=== PATIENT | female | born 1970 | race American Indian/Alaskan Native ===

== ENCOUNTER 2019-08-03 07:56 | Inpatient (IN) | payer MEDICAID ==
[2019-08-02 12:08] LABS: Hemoglobin 12.6 gm/dl (10.1-14.3); Mean Corpuscular HGB Conc 33 % (30-34); Mean Corpuscular Volume 95 fl (79-97); Platelet Count 342 K/mm3 (140-440)
[2019-08-02 12:56] LABS: Large Platelets Rare; Platelet Estimate Consistent w Auto; RBC Morphology Normal; Total Cells Counted 100
--- NOTE | 2019-08-03 07:55 | Anesthesia Consultation ---
Anesthesia Consult and Med Hx Date of service: 08/03/19 - Airway Anesthetic Teeth Evaluation: Good ROM Head & Neck: Adequate Mental/Hyoid Distance: Adequate Mallampati Class: Class II Intubation Access Assessment: Probably Good - Pulmonary Exam CTA: Yes - Cardiac Exam Cardiac Exam: RRR - Pre-Operative Health Status ASA Pre-Surgery Classification: ASA1 Proposed Anesthetic Plan: General - Pre-Anesthesia Comment Pre-Anesthesia Comments: Patient does not want TAP block. - Central Nervous System Hx Psychiatric Problems: No - Other Systems Hx Cancer: No - Additional Comments Anesthesia Medical History Comments: Healthy
--- NOTE | 2019-08-03 07:55 | Anesthesia Day of Surgery ---
Anesthesia Day of Surgery - Day of Surgery Patient Examined: Yes Patient H&P Reviewed: Yes Patient is NPO: Yes
[2019-08-03] MEDS ORDERED: LACTATED RINGERS 1,000 ML IV SCH (08:00)
[2019-08-03] MEDS ORDERED: MIDAZOLAM 2 MG/2 ML INJ IV NR (08:00)
--- NOTE | 2019-08-03 08:24 | History and Physical Report ---
History of Present Illness Date of examination: 08/03/19 Date of admission: 08/03/19 07:56 Chief complaint: Symptomatic uterine fibroids History of present illness: Pt is a 49yo BF LMP 06/27/19 presents for surgical evaluation and treatment of uterine fibroids. She complains of pelvic pain, and pelvic u/s showed an enlarged uterus 14 x 6.7 x 8.7cm with multiple fibroids. She desires a Total Abdominal Hysterectomy with ovarian conservation. Past History Past Medical History: no pertinent history Past Surgical History: no surgical history COURT CLERK History: fibroids Family/Genetic History: none Social history: no significant social history, single Medications and Allergies Allergies Allergy/AdvReac Type Severity Reaction Status Date / Time No Known Allergies Allergy Verified 07/28/19 15:00 Home Medications Medication Instructions Recorded Confirmed Last Taken Type No Known Home Medications [No 07/28/19 07/28/19 Unknown History Reported Home Medications] Active Meds: Active Medications Acetaminophen/Hydrocodone Bitart ([place] 5/325) 2 each PO ONCE PRN PRN Reason: Pain, Moderate (4-6) Hydromorphone HCl (Dilaudid) 0.5 mg IV Q10MIN PRN PRN Reason: Pain , Severe (7-10) Lactated Ringer's (Lactated Ringers) 1,000 mls @ 100 mls/hr IV DIRECT ZEE Midazolam HCl (Versed) 2 mg IV PREOP NR Stop: 08/03/19 23:59 Ondansetron HCl (Zofran) 4 mg IV ONCE PRN PRN Reason: Nausea And Vomiting Review of Systems All systems: negative - Vital Signs Vital signs: Vital Signs Temp Pulse Resp BP Pulse Ox 97.9 F 92 H 20 138/94 97 08/02/19 10:50 08/02/19 10:50 08/02/19 10:50 08/02/19 10:50 08/02/19 10:50 Temp Pulse Resp BP Pulse Ox 97.9 F 92 H 20 138/94 97 08/02/19 10:50 08/02/19 10:50 08/02/19 10:50 08/02/19 10:50 08/02/19 10:50 - Physical Exam Breasts: Positive: deferred Cardiovascular: Regular rate Lungs: Positive: Clear to auscultation Abdomen: Positive: normal appearance Genitourinary (Female): Positive: normal external genitalia Uterus: Positive: enlarged Extremities: Positive: normal Results Result Diagrams: 08/04/19 06:37 08/04/19 06:37 Abnormal lab results 08/02/19 Range/Units 11:00 WBC 4.4 L (4.5-11.0) K/mm3 Monocytes % (Manual) 18.0 H (0.0-7.3) % All other labs normal. Ultrasound: report reviewed Assessment and Plan - Patient Problems (1) Fibroid uterus Onset Date: 08/03/19 Current Visit: Yes Status: Resolved Qualifiers: Uterine leiomyoma location: intramural and subserous Qualified Code(s): D25.1 - Intramural leiomyoma of uterus; D25.2 - Subserosal leiomyoma of uterus Plan to address problem: A: Symptomatic uterine fibroids P: Admit for a Total Abdominal Hysterectomy with Bilateral Salpingectomy
[2019-08-03] MEDS ORDERED: HYDROcodone/ACETAMINOPHEN 5-325 MG TAB PO PRN (08:30)
[2019-08-03] MEDS ORDERED: ONDANSETRON 4 MG/2 ML INJ IV PRN (08:30)
[2019-08-03] MEDS ORDERED: ceFAZolin/Water 2 GM/20 ML 2 GM/20 ML SYRINGE IV NR (08:30)
[2019-08-03] MEDS ORDERED: ONDANSETRON 4 MG/2 ML INJ ONE (08:44)
[2019-08-03] MEDS ORDERED: PROPOFOL 200 MG/20 ML VIAL IV ONE (08:44)
[2019-08-03] MEDS ORDERED: HYDROmorphone 1 MG/1 ML INJ ONE (08:44)
[2019-08-03] MEDS ORDERED: ROCURONIUM 50 MG/5 ML INJ IV ONE ×2 (08:44→08:45)
[2019-08-03] MEDS ORDERED: LIDOCAINE MPF (2%) 20 MG/1 ML VIAL 5 ML ONE (08:45)
[2019-08-03] MEDS ORDERED: dexAMETHasone 20 MG/5 ML VIAL ONE (09:58)
[2019-08-03] MEDS ORDERED: SODIUM CHLORIDE 0.9% IRR 1,500 ML BOTTLE IR ONE (10:38)
[2019-08-03] MEDS ORDERED: LACTATED RINGERS 1,000 ML ONE (10:54)
[2019-08-03] MEDS ORDERED: KETOROLAC 30 MG/1 ML INJ ONE (11:09)
[2019-08-03] MEDS ORDERED: GLYCOPYRROLATE 0.4 MG/2 ML INJ ONE (11:10)
[2019-08-03] MEDS ORDERED: NEOSTIGMINE 10MG/10 ML INJ MDV ONE (11:10)
[2019-08-03] MEDS ORDERED: fentaNYL 100 MCG/2 ML INJ ONE (11:17)
[2019-08-03] MEDS: HYDROmorphone 1 MG/1 ML INJ IV PRN ×4 (11:48→12:26)
--- NOTE | 2019-08-03 11:51 | Operative Report ---
Operative Report Operative Report: Date of procedure: 08/03/2019 Pre-operative diagnosis: 1. Symptomatic uterine fibroids Post-operative diagnosis: Same Procedure name(s): 1. Total abdominal hysterectomy 2. Bilateral salpingectomy Surgeon: Arcenio Butler MD Child Development Consultant: Erika Donovan CSA Anesthesia: IQRA Block followed by general endotracheal intubation EBL: 500 mL's Findings: A 16 -18 week size multi-myomatous uterus. Normal tubes and ovaries bilaterally. Procedure: After the patient was first correctly identified and after IQRA block and general anesthesia was administered she was prepped and draped in usual in the usual sterile fashion and placed in the dorsolithotomy position. The skin knife was used to make a transverse skin incision. The incision was extended down to the layer of the fascia which was nicked in the midline and extended laterally using Bovie cautery. The rectus muscles were dissected off the rectus fascia both superiorly and inferiorly, the rectus bellies in the midline and the peritoneum was entered under direct visualization. Exploration of the pelvic organs found the uterus to be enlarged, extending just below the umbilicus. The left and right fallopian tubes were normal but elongated and the ovaries were normal bilaterally. The uterus was elevated in the surgical field by the use of a single-toothed tenaculum. Next the bowels were packed back and the round ligaments were grasped, cauterized and cut using the Enseal device. The utero-ovarian ligament was clamped, cauterized and cut, thus freeing the right ovary from the right uterine sidewall. The same procedure was performed on the left. The left round ligament was clamped, cauterized and cut using the Enseal device, and the left utero-ovarian ligament was clamped, cauterized and cut thus freeing the left ovary and the left fallopian tube from the left uterine sidewall. The fallopian tubes were also cut along the mesosalpinx, thus freeing the tubes bilaterally. The uterine vessels were then skeletonized bilaterally, and the bladder flap was taken down anteriorly over a large lower uterine segment fibroid. The uterine vessels were then doubly clamped cut and suture ligated bilaterally, and the cardinal ligaments were sequentially clamped cut and suture ligated down to the level of the uterosacral ligaments. The cervix was then amputated from the vaginal cuff and the specimen was handed off the surgical field. The vaginal cuff was then made hemostatic using several sutures of 0 Vicryl suture in a [id number] configuration. After excellent hemostasis was assured copious amounts of irrigation was then performed. The Tisseel sealant was then sprayed across the vaginal cuff and the superior pedicles bilaterally, and after excellent hemostasis was assured, the procedure was considered complete. All instruments were removed from the abdomen, and the peritoneum was closed using 0 Vicryl suture in a running interlocking fashion and the rectus muscles were also loosely re-approximated using 0 Vicryl suture in a [id number] configuration. The fascia was then re-approximated using #1 Vicryl suture in a running interlocking fashion, the subcutaneous layer made hemostatic using Bovie cautery and the skin edges re-approximated using 4-0 Vicryl suture in a sub-cuticular fashion. Patient tolerated the procedure well was transported to recovery room in stable condition.
[2019-08-03] MEDS ORDERED: MORPHINE 4 MG/1 ML INJ IV PRN (11:52)
[2019-08-03] MEDS ORDERED: oxyCODONE /ACETAMINOPHEN 5-325MG TAB PO PRN (11:52)
[2019-08-03] MEDS ORDERED: ACETAMINOPHEN 325 MG TAB PO PRN (11:52)
[2019-08-03] MEDS ORDERED: D5W/LACTATED RINGERS 1,000 ML IV SCH (12:00)
--- NOTE | 2019-08-03 14:19 | Post Anesthesia Evaluation ---
- Post Anesthesia Evaluation Patient Participated: Yes Airway Patent: Yes Stable Respiratory Function: Yes Temp > 96.8F: Yes Pain Manageable: Yes Adequeate Hydration: Yes Anesthesia Complications: No
[2019-08-03] MEDS: KETOROLAC 30 MG/1 ML INJ IV SCH (17:37)
[2019-08-03] MEDS: ceFAZolin/NS 1 GM/50 ML 1 GM/50 ML BAG IV SCH (17:39)
[2019-08-03] MEDS: ONDANSETRON 4 MG/2 ML INJ IV PRN (19:48)
[2019-08-03] MEDS: DOCUSATE SODIUM 100 MG CAP PO SCH (21:29)
[2019-08-03] MEDS: HYDROcodone/ACETAMINOPHEN 5-325 MG TAB PO PRN (21:29)
[2019-08-03] MEDS ORDERED: PROMETHAZINE 25 MG RECT SUPP PR PRN (22:09)
[2019-08-04] MEDS: HYDROcodone/ACETAMINOPHEN 5-325 MG TAB PO PRN ×3 (04:39→21:33)
[2019-08-04] MEDS: ONDANSETRON 4 MG/2 ML INJ IV PRN (04:39)
[2019-08-04] MEDS: ceFAZolin/NS 1 GM/50 ML 1 GM/50 ML BAG IV SCH (06:13)
[2019-08-04] MEDS: KETOROLAC 30 MG/1 ML INJ IV SCH ×3 (06:54→16:08)
[2019-08-04 07:01] LABS: Hematocrit 31.6 % (30.3-42.9); Hemoglobin 10.8 gm/dl (10.1-14.3)
[2019-08-04 07:26] LABS: BUN/Creatinine Ratio 7; Blood Urea Nitrogen 5 mg/dL (7-17); Calcium 8.7 mg/dL (8.4-10.2); Hemolysis Index 19
--- NOTE | 2019-08-04 10:02 | Progress Note ---
Assessment and Plan - Patient Problems (1) Fibroid uterus Onset Date: 08/03/19 Current Visit: Yes Status: Resolved Qualifiers: Uterine leiomyoma location: intramural and subserous Qualified Code(s): D25.1 - Intramural leiomyoma of uterus; D25.2 - Subserosal leiomyoma of uterus (2) S/P GERRY (total abdominal hysterectomy) Onset Date: 08/04/19 Current Visit: Yes Status: Resolved Plan to address problem: A: S/P GERRY - POD #1 Doing well Asymptomatic anemia - stable P: Continue RPOC Anticipate discharge later today Subjective - Subjective Date of service: 08/04/19 Principal diagnosis: s/p GRERY - POD #1 Interval history: Pt is s/p a Total Abdominal Hysterectomy with Bilateral salpingectomy, and feeling well. She is tolerating a liquid diet without nausea or vomiting. No flatus yet. Patient reports: appetite normal, voiding normally, pain well controlled, ambulating normally, no dizzy ambulation, no flatus, no nauseated Objective - Vital Signs Latest vital signs: Vital Signs Temp Pulse Resp BP Pulse Ox 08/04/19 08:38 98.2 F 97 H 20 100/61 88 08/04/19 06:23 99.0 F 102 H 18 114/60 92 08/04/19 05:31 18 08/04/19 02:26 98.8 F 102 H 18 118/80 95 08/03/19 22:00 98.5 F 103 H 20 138/91 97 08/03/19 16:28 98.9 F 91 H 12 145/95 96 08/03/19 13:00 98.0 F 100 H 18 137/87 94 08/03/19 12:30 99.1 F 99 H 18 135/84 95 08/03/19 12:26 16 08/03/19 12:15 91 H 12 157/83 95 08/03/19 12:03 14 08/03/19 12:00 86 17 145/81 97 08/03/19 11:48 17 08/03/19 11:45 77 17 151/84 94 08/03/19 11:40 84 20 157/86 95 08/03/19 11:35 77 15 152/87 96 08/03/19 11:28 98.4 F 80 16 158/81 96 Intake and Output 0108/04/19 08/04/19 22:59 06:59 14:59 Intake Total 150 Output Total 800 975 Balance -711 -563 Intake: IV 50 ANCEF/NS 1 GM/50 ML 1 gm 50 In 50 ml @ 100 mls/hr IV Q8H [facility] Rx#:[id number] Oral 100 Output: Urine 800 975 Indwelling Catheter 800 975 Other: Total, Intake Amount 100 Total, Output Amount 800 375 Voiding Method Indwelling Catheter Indwelling Catheter Weight 65.771 kg - Exam Abdomen: Present: normal appearance, soft Extremities: Present: normal Incision: Present: normal, dry, intact - Labs Labs: Abnormal lab results 08/04/19 Range/Units 06:37 BUN 5 L (7-17) mg/dL Glucose 139 H (65-100) mg/dL Laboratory Tests 08/02/19 08/02/19 08/03/19 11:00 11:00 08:10 WBC 4.4 L RBC 4.00 Hgb 12.6 Hct 38.0 MCV 95 MCH 32 MCHC 33 RDW 14.0 Plt Count 342 Rhea % (Auto) Vacuum Pan Operator Add Manual Diff Complete Total Counted 100 Seg Neuts % (Manual) 49.0 Band Neutrophils % 0 Lymphocytes % (Manual) 29.0 Reactive Lymphs % (Man) 0 Monocytes % (Manual) 18.0 H Eosinophils % (Manual) 3.0 Basophils % (Manual) 1.0 Metamyelocytes % 0 Myelocytes % 0 Promyelocytes % 0 Blast Cells % 0 Nucleated RBC % Not Reportable Seg Neutrophils # Man 2.2 Band Neutrophils # 0.0 Lymphocytes # (Manual) 1.3 Abs React Lymphs (Man) 0.0 Monocytes # (Manual) 0.8 Eosinophils # (Manual) 0.1 Basophils # (Manual) 0.0 Metamyelocytes # 0.0 Myelocytes # 0.0 Promyelocytes # 0.0 Blast Cells # 0.0 WBC Morphology Not Reportable Hypersegmented Neuts Not Reportable Hyposegmented Neuts Not Reportable Hypogranular Neuts Not Reportable Smudge Cells Not Reportable Toxic Granulation Not Reportable Toxic Vacuolation Not Reportable Dohle Bodies Not Reportable Pelger-Huet Anomaly Not Reportable Libertad Rods Not Reportable Platelet Estimate Consistent w auto Clumped Platelets Not Reportable Plt Clumps, EDTA Not Reportable Large Platelets Rare Giant Platelets Not Reportable Platelet Satelliting Not Reportable Plt Morphology Comment Not Reportable RBC Morphology Normal Dimorphic RBCs Not Reportable Polychromasia Not Reportable Hypochromasia Not Reportable Poikilocytosis Not Reportable Anisocytosis Not Reportable Microcytosis Not Reportable Macrocytosis Not Reportable Spherocytes Not Reportable Pappenheimer Bodies Not Reportable Sickle Cells Not Reportable Target Cells Not Reportable Tear Drop Cells Not Reportable Ovalocytes Not Reportable Helmet Cells Not Reportable Rene-[place] Bodies Not Reportable [place] Rings Not Reportable Lucretia Cells Not Reportable Bite Cells Not Reportable Crenated Cell Not Reportable Elliptocytes Not Reportable Acanthocytes (Spur) Not Reportable Rouleaux Not Reportable Hemoglobin C Crystals Not Reportable Schistocytes Not Reportable Malaria parasites Not Reportable Thang Bodies Not Reportable Hem Pathologist Commnt No Sodium Potassium Chloride Carbon Dioxide Anion Gap BUN Creatinine Estimated GFR BUN/Creatinine Ratio Glucose Calcium HCG, Qual Negative Blood Type A POSITIVE Antibody Screen Negative 08/04/19 08/04/19 06:37 06:37 WBC RBC Hgb 10.8 Hct 31.6 D MCV MCH MCHC RDW Plt Count Rhea % (Auto) Add Manual Diff Total Counted Seg Neuts % (Manual) Band Neutrophils % Lymphocytes % (Manual) Reactive Lymphs % (Man) Monocytes % (Manual) Eosinophils % (Manual) Basophils % (Manual) Metamyelocytes % Myelocytes % Promyelocytes % Blast Cells % Nucleated RBC % Seg Neutrophils # Man Band Neutrophils # Lymphocytes # (Manual) Abs React Lymphs (Man) Monocytes # (Manual) Eosinophils # (Manual) Basophils # (Manual) Metamyelocytes # Myelocytes # Promyelocytes # Blast Cells # WBC Morphology Hypersegmented Neuts Hyposegmented Neuts Hypogranular Neuts Smudge Cells Toxic Granulation Toxic Vacuolation Dohle Bodies Pelger-Huet Anomaly Libertad Rods Platelet Estimate Clumped Platelets Plt Clumps, EDTA Large Platelets Giant Platelets Platelet Satelliting Plt Morphology Comment RBC Morphology Dimorphic RBCs Polychromasia Hypochromasia Poikilocytosis Anisocytosis Microcytosis Macrocytosis Spherocytes Pappenheimer Bodies Sickle Cells Target Cells Tear Drop Cells Ovalocytes Helmet Cells Rene-[place] Bodies [place] Rings Lucretia Cells Bite Cells Crenated Cell Elliptocytes Acanthocytes (Spur) Rouleaux Hemoglobin C Crystals Schistocytes Malaria parasites Thang Bodies Hem Pathologist Commnt Sodium 139 Potassium 3.9 Chloride 100.6 Carbon Dioxide 26 Anion Gap 16 BUN 5 L Creatinine 0.7 Estimated GFR > 60 BUN/Creatinine Ratio 7 Glucose 139 H Calcium 8.7 HCG, Qual Blood Type Antibody Screen
[2019-08-04] MEDS: DOCUSATE SODIUM 100 MG CAP PO SCH ×2 (10:20→21:33)
--- NOTE | 2019-08-04 17:42 | Discharge Summary ---
Providers - Providers Date of Admission: 08/03/19 07:56 Date of discharge: 08/04/19 Attending physician: GABRIELE MOYA Primary care physician: BRENT CARROLL MD Hospitalization Reason for admission: other (Symptomatic uterine fibroids) Procedure: other (Total Abdominal Hysterectomy) Episiotomy: none Laceration: none Incision: normal, dry, intact Other procedures: none complications: none Discharge diagnosis: other (s/p GERRY) Hospital course: Pt is a 49yo BF LMP 06/27/19 who presented for surgical evaluation and treatment of uterine fibroids. She complained of pelvic pain, and pelvic u/s showed an enlarged uterus 14 x 6.7 x 8.7cm with multiple fibroids. She underwent an uncomplicated Total Abdominal Hysterectomy with Bilateral salpingectomy, and by POD #1 she was tolerating a reg diet without nausea or vomiting, ambulating and voiding without difficulty. She was therefore discharged to home on POD #1 in stable condition. Condition at discharge: Good Disposition: DC-01 TO HOME OR SELFCARE - Discharge Diagnoses (1) Fibroid uterus Status: Resolved Qualifiers: Uterine leiomyoma location: intramural and subserous Qualified Code(s): D25.1 - Intramural leiomyoma of uterus; D25.2 - Subserosal leiomyoma of uterus Plan - Discharge Medications Prescriptions: Ibuprofen [Motrin] 800 mg PO Q8HR PRN #30 tablet PRN Reason: Pain, Mild (1-3) HYDROcodone/APAP 5-325 [[place] 5-325 mg TAB] 1 each PO Q6HR PRN #30 tablet PRN Reason: Pain, Moderate (4-6) - Provider Discharge Summary Activity: routine, no sex for 6 weeks, no heavy lifting 4 weeks, no strenuous exercise Diet: routine Instructions: routine Additional instructions: [] Smoking cessation referral if applicable(refer to patient education folder for contact #) [] Refer to [facility] Booklet Call your doctor immediately for: * Fever > 100.5 * Heavy vaginal bleeding ( >1 pad per hour) * Severe persistent headache * Shortness of breath * Reddened, hot, painful area to leg or breast * Drainage or odor from incision. * Keep incision clean and dry at all times and follow doctor's instructions regarding bathing/showering - Follow up plan Follow up: PRIMARY CARE, [Primary Care Provider] - 7 Days GABRIELE MOYA MD [Staff Physician] - 7 Days Forms: [facility] Discharge Summary
[2019-08-04 20:23] VITALS: BP 112/71
== END 2019-08-04 22:20 | disposition home or self-care (01) | DRG 743 ==
LOC: 3A 07:56 → OB 12:00
PROVIDERS: ADMIT Obstetrics & Gynecology; ATTEND Obstetrics & Gynecology
PROC: 0UT90ZZ Resection of Uterus, Open Approach (ICD-10-PCS; principal; 2019-08-03)
PROC: 0UT70ZZ Resection of Bilateral Fallopian Tubes, Open Approach (ICD-10-PCS; 2019-08-03)
DX: D25.1 Intramural leiomyoma of uterus (principal); D64.9 Anemia, unspecified
CPT/HCPCS: 36415; 80048; 84703; 85007; 85014; 85018; 85025; 86850; 86900; 86901; 88307; G0378; C1765; C9250; J0690; J1100; J1170; J1885; J2250; J2405; J2704; J2710; J3010; J7120; J7121